=== PATIENT | male | born 1995 | race Two or more races ===

== ENCOUNTER 2018-03-06 11:30 | Emergency (ER) | payer OTHER ==
[2018-03-06 12:05] LABS: Urine Appearance Clear; Urine Blood Negative (Negative); Urine Color Straw; Urine Ketones Negative (Negative); Urine Protein Negative (Negative); Urine Specific Gravity 1.003 (1.010-1.030); Urine Urobilinogen Negative (Negative)
[2018-03-06 12:15] LABS: ABS Basophils 0.1 10^3/ul (0-0.2); ABS Eosinophils 0.1 10^3/ul (0-0.6); ABS Lymphocytes 1.5 10^3/ul (1.0-4.8); ABS Monocytes 0.3 10^3/ul (0-0.8); ABS Neutrophils 2.5 10^3/ul (1.5-7.7); ABS Nucleated RBC 0 10^3/ul; Eosinophil % 1.5 % (0-6); Hematocrit 47 % (42-52); Hemoglobin 16.1 g/dl (14.0-18.0); Lymphocyte % 34.2 % (25-47); Mean Corpuscular HGB Conc 34 g/dl (31-36); Mean Corpuscular Hemoglobin 30 pg (27-31); Mean Corpuscular Volume 88 fL (80-94); Mean Platelet Volume 7.3 um3 (7.4-10.4); Nucleated Red Blood Cells % 0; Platelet Count 280 10^3/ul (150-450); Red Blood Count 5.29 10^6/ul (4.0-5.4); Red Cell Distribution Width 14 % (10.5-15); White Blood Count 4.5 10^3/ul (3.5-10.8)
[2018-03-06 12:31] LABS: EGFR Non-African American 130.8 (>60)
[2018-03-06 22:02] VITALS: BP 140/82
--- NOTE | 2018-03-06 22:08 | ED ---
Fidencio Lowry Jennifer, scribed for Rodney Blue MD on 03/06/18 at 1156 . Psychiatric Complaint - HPI Summary HPI Summary: The patient is a 22 year old male who presents with depression that worsened after taking an unknown drug last night. The patient was found wandering around the wrong [employer] on campus and was brought 9.41 by police. When asked if he wanted to hurt himself, he said, Take me to my room and Ill think about it. The patient told police that if they told his parents he was at the ED, he would kill himself. The patient additionally explained that last night he was with a girl who was the cause of all his stress. The patient sees Dr. Babcock, a psychotherapist, once a week. He adds that he did not sleep at all last night. - History Of Current Complaint Time Seen by Provider: 03/06/18 11:35 Hx Obtained From: Patient Onset/Duration: Sudden Onset, Lasting Hours - began last night, Still Present Timing: Constant Severity Initially: Moderate Severity Currently: Moderate Character: Depressed Aggravating Factor(s): Nothing Alleviating Factor(s): Nothing Has Suicidal: Denies: With A Plan Has Homicidal: Denies: Thoughts, With A Plan - Allergies/Home Medications Home Medications: Home Medications Acetaminophen TAB* [Tylenol TAB*] 325 - 650 mg PO Q6H PRN 03/06/18 [History Confirmed 03/06/18] PMH/Surg Hx/FS Hx/Imm Hx Endocrine/Hematology History: Denies: Hx Diabetes Cardiovascular History: Denies: Hx Hypertension - Family History Known Family History: Negative: Hypertension - Social History Occupation: Student Hx Substance Use: Yes Smoking Status (MU): Never Smoked Tobacco Review of Systems Negative: Fever Positive: Depressed All Other Systems Reviewed And Are Negative: Yes Physical Exam - Summary Physical Exam Summary: Appearance: The patient is well-nourished in no acute distress and in no acute pain. Skin: The skin is warm and dry and skin color reflects adequate perfusion. HEENT: The head is normocephalic and atraumatic. The pupils are equal and reactive. The conjunctivae are clear and without drainage. Nares are patent and without drainage. Mouth reveals moist mucous membranes and the throat is without erythema and exudate. The external ears are intact. The ear canals are patent and without drainage. The tympanic membranes are intact. Neck: the neck is supple with full range of motion and non-tender. There are no carotid bruits. There is no neck vein distension. Respiratory: Chest is non-tender. Lungs are clear to auscultation and breath sounds are symmetrical and equal. Cardiovascular: Heart is regular rate and rhythm. There is no murmur or rub auscultated. There is no peripheral edema and pulses are symmetrical and equal. Abdomen: The abdomen is soft and non-tender. There are normal bowel sounds heard in all four quadrants and there is no organomegaly palpated. Musculoskeletal: There is no back tenderness noted. Extremities are non-tender with full range of motion. There is good capillary refill. There is no peripheral edema or calf tenderness elicited. Neurological: Patient is alert and oriented to person, place and time. The patient has symmetrical motor strength in all four extremities. Cranial nerves are grossly intact. Deep tendon reflexes are symmetrical and equal in all four extremities. Psychiatric: The patient has an appropriate affect and does not exhibit any anxiety or depression. Triage Information Reviewed: Yes Vital Signs On Initial Exam: Initial Vitals Temp Pulse Resp BP Pulse Ox 98.5 F 88 20 130/70 99 03/06/18 11:38 03/06/18 11:38 03/06/18 11:38 03/06/18 11:38 03/06/18 11:38 Vital Signs Reviewed: Yes Diagnostics - Vital Signs Vital Signs Temp Pulse Resp BP Pulse Ox 03/06/18 21:55 97.4 F 96 18 140/82 100 03/06/18 20:50 97.5 F 94 16 131/71 100 03/06/18 18:58 98.5 F 88 18 122/70 98 03/06/18 12:18 93 120/73 99 03/06/18 12:04 88 91 03/06/18 11:47 96 98 03/06/18 11:46 101 127/88 97 03/06/18 11:38 98.5 F 88 20 130/70 99 - Laboratory Lab Results: Lab Results 03/06/18 03/06/18 03/06/18 Range/Units 11:52 11:52 12:10 WBC (3.5-10.8) 10^3/ul RBC (4.0-5.4) 10^6/ul Hgb (14.0-18.0) g/dl Hct (42-52) % MCV (80-94) fL MCH (27-31) pg MCHC (31-36) g/dl RDW (10.5-15) % Plt Count (150-450) 10^3/ul MPV (7.4-10.4) um3 Neut % (Auto) (38-83) % Lymph % (Auto) (25-47) % [place] % (Auto) (0-7) % Eos % (Auto) (0-6) % Baso % (Auto) (0-2) % Absolute Neuts (auto) (1.5-7.7) 10^3/ul Absolute Lymphs (auto) (1.0-4.8) 10^3/ul Absolute Monos (auto) (0-0.8) 10^3/ul Absolute Eos (auto) (0-0.6) 10^3/ul Absolute Basos (auto) (0-0.2) 10^3/ul Absolute Nucleated RBC 10^3/ul Nucleated RBC % Sodium 145 (139-145) mmol/L Potassium 3.8 (3.5-5.0) mmol/L Chloride 110 (101-111) mmol/L Carbon Dioxide 27 (22-32) mmol/L Anion Gap 8 (2-11) mmol/L BUN 4 L (6-24) mg/dL Creatinine 0.76 (0.67-1.17) mg/dL Est GFR ( Amer) 168.2 (>60) Est GFR (Non-Af Amer) 130.8 (>60) BUN/Creatinine Ratio 5.3 L (8-20) Glucose 117 H (70-100) mg/dL Calcium 9.0 (8.6-10.3) mg/dL Total Bilirubin 0.40 (0.2-1.0) mg/dL AST 13 (13-39) U/L ALT 9 (7-52) U/L Alkaline Phosphatase 64 (34-104) U/L Total Protein 7.2 (6.4-8.9) g/dL Albumin 4.8 (3.2-5.2) g/dL Globulin 2.4 (2-4) g/dL Albumin/Globulin Ratio 2.0 (1-3) TSH 0.57 (0.34-5.60) mcIU/mL Urine Color Straw Urine Appearance Clear Urine pH 7.0 (5-9) Ur Specific [place] 1.003 L (1.010-1.030) Urine Protein Negative (Negative) Urine Ketones Negative (Negative) Urine Blood Negative (Negative) Urine Nitrate Negative (Negative) Urine Bilirubin Negative (Negative) Urine Urobilinogen Negative (Negative) Ur Leukocyte Esterase Negative (Negative) Urine Glucose Negative (Negative) Salicylates < 2.50 (<30) mg/dL Urine Opiates Screen None detected (None Detect) Acetaminophen < 15 mcg/mL Ur Barbiturates Screen None detected (None Detect) Ur Phencyclidine Scrn None detected (None Detect) Ur Amphetamines Screen None detected (None Detect) U Benzodiazepines Scrn None detected (None Detect) Urine Cocaine Screen None detected (None Detect) U Cannabinoids Screen None detected (None Detect) Serum Alcohol 296 H (<10) mg/dL 03/06/18 Range/Units 12:10 WBC 4.5 (3.5-10.8) 10^3/ul RBC 5.29 (4.0-5.4) 10^6/ul Hgb 16.1 (14.0-18.0) g/dl Hct 47 (42-52) % MCV 88 (80-94) fL MCH 30 (27-31) pg MCHC 34 (31-36) g/dl RDW 14 (10.5-15) % Plt Count 280 (150-450) 10^3/ul MPV 7.3 L (7.4-10.4) um3 Neut % (Auto) 55.5 (38-83) % Lymph % (Auto) 34.2 (25-47) % [place] % (Auto) 7.1 H (0-7) % Eos % (Auto) 1.5 (0-6) % Baso % (Auto) 1.7 (0-2) % Absolute Neuts (auto) 2.5 (1.5-7.7) 10^3/ul Absolute Lymphs (auto) 1.5 (1.0-4.8) 10^3/ul Absolute Monos (auto) 0.3 (0-0.8) 10^3/ul Absolute Eos (auto) 0.1 (0-0.6) 10^3/ul Absolute Basos (auto) 0.1 (0-0.2) 10^3/ul Absolute Nucleated RBC 0 10^3/ul Nucleated RBC % 0 Sodium (139-145) mmol/L Potassium (3.5-5.0) mmol/L Chloride (101-111) mmol/L Carbon Dioxide (22-32) mmol/L Anion Gap (2-11) mmol/L BUN (6-24) mg/dL Creatinine (0.67-1.17) mg/dL Est GFR ( Amer) (>60) Est GFR (Non-Af Amer) (>60) BUN/Creatinine Ratio (8-20) Glucose (70-100) mg/dL Calcium (8.6-10.3) mg/dL Total Bilirubin (0.2-1.0) mg/dL AST (13-39) U/L ALT (7-52) U/L Alkaline Phosphatase (34-104) U/L Total Protein (6.4-8.9) g/dL Albumin (3.2-5.2) g/dL Globulin (2-4) g/dL Albumin/Globulin Ratio (1-3) TSH (0.34-5.60) mcIU/mL Urine Color Urine Appearance Urine pH (5-9) Ur Specific [place] (1.010-1.030) Urine Protein (Negative) Urine Ketones (Negative) Urine Blood (Negative) Urine Nitrate (Negative) Urine Bilirubin (Negative) Urine Urobilinogen (Negative) Ur Leukocyte Esterase (Negative) Urine Glucose (Negative) Salicylates (<30) mg/dL Urine Opiates Screen (None Detect) Acetaminophen mcg/mL Ur Barbiturates Screen (None Detect) Ur Phencyclidine Scrn (None Detect) Ur Amphetamines Screen (None Detect) U Benzodiazepines Scrn (None Detect) Urine Cocaine Screen (None Detect) U Cannabinoids Screen (None Detect) Serum Alcohol (<10) mg/dL Result Diagrams: 03/06/18 12:10 03/06/18 12:10 Lab Statement: Any lab studies that have been ordered have been reviewed, and results considered in the medical decision making process. Course/Dx - Course Course Of Treatment: Nr. Virgie Acharya presented quite intoxicated but very cooperative. He was medically cleared and had an MHE in the Flex Unit. They felt that he was stable for discharge. - Differential Dx/Clinical Impression Provider Diagnosis: Alcohol intoxication Discharge - Sign-Out/Discharge Documenting (check all that apply): Discharge - Discharge Plan Condition: Stable Disposition: HOME Patient Education Materials: Alcohol Intoxication (ED) Referrals: [facility] - Moi SHANKAR [Primary Care Provider] - Additional Instructions: Follow up with your primary care physician in three days. Return to the emergency department for any new or worsening symptoms. Per completion of a mental health evaluation, you are cleared for release and do not require inpatient psychiatric hospitalization at this time. Please go to nearest emergency room or call 911 if safety concerns arise or condition worsens. Important Phone Numbers: [facility]~~ ph:[phone] Suicide Prevention and Crisis Services~~~~~~~~~~~~~~~~~~~~~~~ ph:[phone] National Suicide Prevention Lifeline~~~~~~~~~~~~~~~~~~~~~~~ ~~ ph:684-224- [facility] (4013) [facility]~~~~~~~~~~~~~~~~~~ ~~ ph:[phone] Alcoholics Anonymous~~~~~~~~~~~~~~~~~~~~~~~~~~~~~~~~~~~~~~~~~~~~~~~~~ ph:[phone] [facility]~~~~~~ ~~ ph:[phone] [place] [employer] ph:[phone] Discharged home to [place] Follow up with Therapist as scheduled () Take medications as prescribed Return to ED, if needed - Billing Disposition and Condition Condition: STABLE Disposition: HOME The documentation as recorded by the Fidencio bland Jennifer accurately reflects the service I personally performed and the decisions made by Mirza najera Richard L, MD.
== END 2018-03-06 23:01 | disposition home or self-care (01) ==
LOC: ED 11:30
DX: F10.129 Alcohol abuse with intoxication, unspecified (principal)
CPT/HCPCS: 36415; 80053; 80307; 80320; 80329; 81003; 84443; 85025; 99285; G0480

== ENCOUNTER 2018-12-21 09:41 | Inpatient (IN) | payer OTHER ==
--- NOTE | 2018-12-21 10:03 | ED ---
Psychiatric Complaint - HPI Summary HPI Summary: A 23 y/o male brought in by ambulance and police (9.41) presents to the ED s/p suicidal attempt c/o depression and SI. In the ED room, the patient has a pulse of 119 BPM, O2 saturation of 96%, respiratory rate of 18, and blood pressure of 141/90. As per EMS, the patient has been feeling depressed over the past couple days and he attempted suicide today by putting his head in the oven with the gas turned on, however, he did not get burned. Patient has an addiction with ETOH and takes drugs such as Robitussin and Vicodin. EMS noted that the patient attempted suicide in the past. Additionally the family is very voodoo and they do not believe in psychiatric issues/medicine. The patient asked in the ED room and asked again to the [employer] OPERATOR, "Do you have any recommendations on how to kill myself next time". According to the patient, the has been battling depression for the past 3 years. He stated that he tried to stop drinking for a while, but he stated that when he starts, he really drinks. Yesterday, he consumed lots of ETOH which is when the SI started. He stated that he only has SI when he drinks. He stated that he takes Robitussin, smokes Juul and marijuana. He took a half bottle of Robitussin yesterday and the other half this morning. He smoked marijuana yesterday and had a bourbon whiskey this morning. He noted that this is his second time at [facility] ED for SI. PMHx of depression. He takes his Zoloft medication every day. Patient will be signed out to Dr. John Mccollum via Dr. Bert Lemos, pending sobriety and MHE, upon shift change on Friday, December 21, 2018 at 1900. - History Of Current Complaint Time Seen by Provider: 12/21/18 09:45 Hx Obtained From: Patient, EMS - PATIENT BROUGHT IN BY AMBULANCE Onset/Duration: Sudden Onset, Lasting Days, Still Present Timing: Constant Severity Currently: None Character: Depressed Aggravating Factor(s): Alcohol Use - HEAVY ETOH DRINKING Alleviating Factor(s): Nothing Associated Signs And Symptoms: Positive: Negative Related History: Positive For: Prior Psychiatric Issues Has Suicidal: Reports: Thoughts, With A Plan, Demonstrates Gesture, Has Prior Attempt(s) - Allergies/Home Medications Allergies/Adverse Reactions: Allergies Allergy/AdvReac Type Severity Reaction Status Date / Time No Known Allergies Allergy Verified 12/21/18 09:59 Home Medications: Home Medications Sertraline* [Zoloft*] 50 mg pe PO DAILY 12/21/18 [History Confirmed 12/21/18] PMH/Surg Hx/FS Hx/Imm Hx Endocrine/Hematology History: Denies: Hx Diabetes Cardiovascular History: Denies: Hx Hypertension Psychiatric History: Denies: Hx Eating Disorder, Hx of Violent Episodes Against Others - Surgical History Surgery Procedure, Year, and Place: TONSILLECTOMY - Family History Known Family History: Negative: Hypertension - Social History Alcohol Use: Weekly Hx Substance Use: Yes Substance Use Type: Reports: None Smoking Status (MU): Never Smoked Tobacco Review of Systems Negative: Fever Psychological: Other - POSITIVE: SI with attempt. Positive: Depressed All Other Systems Reviewed And Are Negative: Yes Physical Exam - Summary Physical Exam Summary: VITAL SIGNS: Reviewed. GENERAL: Patient is a well-developed and nourished male who is lying comfortable in the stretcher. Patient is not in any acute respiratory distress. Patient is intoxicated with ETOH in his breath. HEAD AND FACE: No signs of trauma. No ecchymosis, hematomas or skull depressions. No sinus tenderness. EYES: PERRLA, EOMI x 2, No injected conjunctiva, no nystagmus. EARS: Hearing grossly intact. Ear canals and tympanic membranes are within normal limits. MOUTH: Oropharynx within normal limits. NECK: Supple, trachea is midline, no adenopathy, no JVD, no carotid bruit, no c- spine tenderness, neck with full ROM. CHEST: Symmetric, no tenderness at palpation LUNGS: Clear to auscultation bilaterally. No wheezing or crackles. CVS: Regular rate and rhythm, S1 and S2 present, no murmurs or gallops appreciated. ABDOMEN: Soft, non-tender. No signs of distention. No rebound no guarding, and no masses palpated. Bowel sounds are normal. EXTREMITIES: FROM in all major joints, no edema, no cyanosis or clubbing. NEURO: Alert and oriented x 3. No acute neurological deficits. Speech is normal and follows commands. SKIN: Dry and warm PSYCH: SI, depressed Triage Information Reviewed: Yes Vital Signs Reviewed: Yes Diagnostics - Laboratory Result Diagrams: 12/21/18 10:06 12/21/18 10:06 Lab Statement: Any lab studies that have been ordered have been reviewed, and results considered in the medical decision making process. - EKG 0956 Cardiac Rate: Tachycardia - 112 BPM EKG Rhythm: Sinus Tachycardia - 112 BPM Summary of EKG Findings: EARLY REPOLARIZATION. Course/Dx - Course Assessment/Plan: A 23 y/o male brought in by ambulance and police (9.41) presents to the ED s/p suicidal attempt c/o depression and SI. In the ED room, the patient has a pulse of 119 BPM, O2 saturation of 96%, respiratory rate of 18 , and blood pressure of 141/90. As per EMS, the patient has been feeling depressed over the past couple days and he attempted suicide today by putting his head in the oven with the gas turned on, however, he did not get burned. Patient has an addiction with ETOH and takes drugs such as Robitussin and Vicodin. EMS noted that the patient attempted suicide in the past. Additionally the family is very voodoo and they do not believe in psychiatric issues/ medicine. The patient asked in the ED room and asked again to the [employer] ST[employer] OPERATOR, "Do you have any recommendations on how to kill myself next time". According to the patient, the has been battling depression for the past 3 years. He stated that he tried to stop drinking for a while, but he stated that when he starts, he really drinks. Yesterday, he consumed lots of ETOH which is when the SI started. He stated that he only has SI when he drinks. He stated that he takes Robitussin, smokes Juul and marijuana. He took a half bottle of Robitussin yesterday and the other half this morning. He smoked marijuana yesterday and had a bourbon whiskey this morning. He noted that this is his second time at [facility] ED for SI. PMHx of depression. He takes his Zoloft medication every day. Blood work without any significant abnormality. 2 troponins 4 hours apart as 0.00. The d-dimer is less than 200 therefore I have no suspicion for acute, syndrome or a PE. Also the was pretty is equal to 0. Blood work without any significant abnormality except for glucose of 106, TSH of 0.33, urinalysis is negative for UTI, urine toxicology is negative, and serum alcohol level is 359. At this point the patient still intoxicated. The patient was given IV fluids. We discussed the case with poison control and they recommend 6 hours observation. EKG shows a sinus tachycardia without any ST elevations. At this time the patient is hemodynamically stable alert and oriented 3. Patient will be signed out to Dr. Mccollum at shift change. - Differential Dx/Clinical Impression Differential Diagnosis/HQI/PQRI: Positive: Alcohol Intoxication, Anxiety, Depression, Suicide Attempt, Suicidal Ideation, Suicidal Gesture Provider Diagnosis: Depressive disorder Discharge - Sign-Out/Discharge Documenting (check all that apply): Sign-Out Patient - CARLI Signing out patient TO: John Mccollum Receiving patient FROM: Bert Lemos Patient Received Moderate/Deep Sedation with Procedure: No - Discharge Plan Condition: Stable Disposition: PSYCHIATRIC FACILITY-[facility] - Billing Disposition and Condition Condition: STABLE - Attestation Statements Document Initiated by Yoshie: Yes Documenting Scribe: Gerald Cerda Provider For Whom Charlie is Documenting (Include Credential): Bert Lemos MD Scribe Attestation: Gerald Lowry scribed for Bert Lemos MD on 12/22/18 at 2152. Scribe Documentation Reviewed: Yes Provider Attestation: The documentation as recorded by the Gerald bland accurately reflects the service I personally performed and the decisions made by Bert najera MD Status of Scribe Document: Viewed
[2018-12-21 10:15] LABS: ABS Basophils 0 10^3/ul (0-0.2); ABS Eosinophils 0.1 10^3/ul (0-0.6); ABS Lymphocytes 1.8 10^3/ul (1.0-4.8); ABS Monocytes 0.5 10^3/ul (0-0.8); ABS Neutrophils 2.7 10^3/ul (1.5-7.7); ABS Nucleated RBC 0 10^3/ul; Eosinophil % 1.9 %; Hematocrit 41 % (42-52); Hemoglobin 14.1 g/dl (14.0-18.0); Lymphocyte % 34.6 %; Mean Corpuscular HGB Conc 34 g/dl (31-36); Mean Corpuscular Hemoglobin 31 pg (27-31); Mean Corpuscular Volume 90 fL (80-94); Mean Platelet Volume 6.4 fL (7.4-10.4); Nucleated Red Blood Cells % 0; Platelet Count 217 10^3/ul (150-450); Red Blood Count 4.57 10^6/ul (4.00-5.40); Red Cell Distribution Width 14 % (10.5-15); White Blood Count 5.2 10^3/ul (3.5-10.8)
[2018-12-21 10:26] LABS: Urine Appearance Clear; Urine Bacteria Absent (Absent); Urine Bilirubin Negative (Negative); Urine Blood 1+ (Negative); Urine Color Yellow; Urine Glucose Negative (Negative); Urine Ketones Negative (Negative); Urine Nitrite Negative (Negative); Urine Protein Negative (Negative); Urine Red Blood Cell Trace(0-2/hpf) (Absent); Urine Urobilinogen Negative (Negative); Urine White Blood Cell Absent (Absent)
[2018-12-21 10:34] LABS: ALT 9 U/L (7-52); AST 20 U/L (13-39); Albumin 4.5 g/dL (3.2-5.2); Albumin/Globulin Ratio 1.9 (1-3); Alkaline Phosphatase 84 U/L (34-104); Anion Gap 9 mmol/L (2-11); BUN/Creatinine Ratio 11.8 (8-20); Blood Urea Nitrogen 9 mg/dL (6-24); CO2 Carbon Dioxide 27 mmol/L (22-32); Calcium 8.9 mg/dL (8.6-10.3); Chloride 107 mmol/L (101-111); EGFR African American 156.7 (>60); EGFR Non-African American 129.5 (>60); Globulin 2.4 g/dL (2-4); Glucose 106 mg/dL (70-100); Potassium 3.6 mmol/L (3.5-5.0); Sodium 143 mmol/L (135-145); Total Protein 6.9 g/dL (6.4-8.9)
[2018-12-21 10:46] LABS: Barbiturates Urine Screen None Detected (None Detect); Benzodiazepine Urine Screen None Detected (None Detect); Urine Cannabinoids Screen None Detected (None Detect)
[2018-12-21] MEDS ORDERED: NS 0.9% 1000 ML** 1,000 ML IV ONE ×2 (11:00→14:37)
[2018-12-21 11:04] LABS: Acetaminophen < 15 mcg/mL; Alcohol 359 mg/dL (<10); Salicylate < 2.50 mg/dL (<30)
[2018-12-21 11:11] LABS: TSH (Thyroid Stimulating Horm) 0.33 mcIU/mL (0.34-5.60)
[2018-12-21] MEDS ORDERED: LORazepam INJ* 2 MG/ML 1 ML VIAL IV PUSH ONE (14:37)
[2018-12-21] MEDS ORDERED: LORazepam INJ* 2 MG/ML 1 ML VIAL ONE (14:40)
--- NOTE | 2018-12-21 19:19 | ED ---
Progress - Progress Note Progress Note: This pt was signed out by Dr. Lemos at shift change, pending disposition, awaiting sobriety and MHE. Pt had a mental health evaluation and his case was reviewed by Dr. Zuniga, psychiatrist. Pt will be admitted to [facility] by Dr. Zuniga on an involuntary status with dx depressive disorder. Course/Dx - Diagnoses Provider Diagnoses: Depressive disorder Discharge - Sign-Out/Discharge Documenting (check all that apply): Patient Departure - Admit to [facility], Receiving Sign-Out Receiving patient FROM: Bert Lemos Patient Received Moderate/Deep Sedation with Procedure: No - Discharge Plan Condition: Stable Disposition: [facility]IATRIC FACILITY[facility] Referrals: [facility] [Outside] - Attestation Statements Document Initiated by Scribe: Yes Documenting Scribe: Marjan Mayo Provider For Whom Scribe is Documenting (Include Credential): John Mccollum MD Scribe Attestation: Marjan Lowry, scribed for John Mccollum MD on 12/21/18 at 4264. Status of Scribe Document: Ready
[2018-12-22] MEDS ORDERED: Al Hydrox/Mg Hydrox/Simet LIQ* 30 ML UDC PO PRN (01:02)
[2018-12-22] MEDS ORDERED: Acetaminophen TAB* 325 MG PO PRN (01:02)
[2018-12-22] MEDS ORDERED: LORazepam PO 0-6 for WAM protocol PO SCH (05:00)
[2018-12-22] MEDS ORDERED: LORazepam IM 0-6 mg for WAM protocol IM SCH (05:00)
[2018-12-22] MEDS ORDERED: Thiamine IV* 100 MG IM X 1 ON ADMISSION IM ONE (05:00)
[2018-12-22 08:46] LABS: HDL Cholesterol 74.7 mg/dL
[2018-12-22] MEDS: Folic Acid TAB* 1 MG DAILY PO SCH (10:07)
[2018-12-22] MEDS: Vitamin THERAPEUTIC TAB PO SCH (10:07)
[2018-12-22] MEDS: Multivitamins ADULT TAB DAILY PO SCH (10:08)
--- NOTE | 2018-12-22 14:30 | HP ---
HISTORY AND PHYSICAL: DATE OF ADMISSION: 12/21/18 PROVIDER: Faby Schaffer NP, in Psychiatry SUPERVISING PHYSICIAN: Jack Borjas MD.* (DICTATED BY FABY SCHAFFER NP) JUSTIFICATION FOR ADMISSION: The patient is in need of 24-hour supervision and care secondary to suicidal ideation and attempt. CHIEF COMPLAINT: "I get very lonely sometimes...I think my friend saved my life tonight by calling [place] [employer]." HISTORY OF PRESENT ILLNESS: The patient is a 23-year-old single male with a history of major depressive disorder, who arrives, brought in by ambulance and is here on a 9.39 status following putting his head in an unlit oven and inhaling gas fumes in an attempt to end his life. He did call his friend after that who called [facility] Police Department, who came and picked him up and sent him to the hospital. Zac is a 23-year-old man who is a biology major in neuroscience, who formerly was a member of fraternity (but is no longer there because he believes they were bad influences), complained significantly of loneliness and unhappiness, and also of drinking too excess on some occasions. He describes his college career at [employer] to be problematic related to depression, which started in high school, and loneliness and anxiety. He identifies himself as an anxious person. He states when he was a sophomore, he began seeking help for depression and loneliness. After his sophomore year, he was drinking alcohol. He states the drinking was under control; it was approximately 3 beers per week. Once he turned 23, however, he was able to purchase alcohol legally. He was working at the [employer]. He was receiving tips and he could purchase 2 to 3 beers 2 to 3 times per week and then he brought a "handle" of vodka and could not stop drinking mixed drinks. He states he has a GPA of 3.2 and that he has been invited to apply to the [employer] masters' program. The event that led him here is that he would arrange for a [place] libertarian, he began drinking on Friday or Friday and continued drinking through Friday into Friday. He states that he had not taken Zoloft in 4 days. He has also been experimenting with cough syrups. In his barbara year, he started drinking cough syrup due to having trouble sleeping and then discovered that he gets a "weird head high." He also has experimented with codeine cough syrup and alcohol. This Friday, he took more Robitussin because he had a cold and he also took more alcohol. He states on Friday, he was so disgusted with himself that he put his head in the oven and then called his friend, Anny, who called the police. He is feeling extremely guilty. His energy is low. He would like to be working on his work for school but cannot do that because he does not have things he needs. He seems well and happy at this point, but he is also minimizing the potentially disastrous effects this could have had on his life and for his family. PAST PSYCHIATRIC HISTORY: He has never been admitted to our hospital before. He has been evaluated here at the hospital on 03/06/18 where he came in intoxicated with a blood alcohol level around 300. He has been seeing Dr. Cristobal Babcock as a therapist who does what is referred as a [facility]. He has not met with Dr. Babcock this semester yet. Last semester, he went to [employer] where he complained of anxiety and depression. Zoloft was increased to 100 mg per day. He has had suicidal ideation as early as his sophomore year in college where he was considering drowning himself in [place]. His Zoloft was increased from 50 mg to 100 mg in September. He states that the increase in Zoloft improved his baseline so that he felt better. He was less tired. His family noticed the positive change. PAST MEDICAL HISTORY: He does not have any allergies that he knows of. He had a tonsillectomy at age 18 which in someway went awry as he was found at home in a pool of blood following the surgery. HISTORY OF SUBSTANCE USE: He uses alcohol heavily and periodically in a binge- type fashion and he uses Robitussin and codeine-based cough syrups. FAMILY HISTORY: He believes that some of his uncles are alcoholics. Dad used to drink but did not have a lot of money so they did not spend it on that. Mom may have "bipolar disorder or menopause," he is not sure. In any case, the family does not "believe" in mental illness and would find it bizarre for Zac to have a mental illness. They would not understand. SOCIAL HISTORY: He is a student at [employer]. His father is living in [place] where he works for a hospital. Zac is doing reasonably well in school. He is happily satisfied that as biology major having average of 3.2 is excellent. He is not or partnered. He does not have children. He has been employed at the [employer]. He was in [employer], but is no longer in that. There are no legal problems. REVIEW OF SYSTEMS: The patient reports feeling fatigued. He denies shortness of breath, heat or cold intolerance, chest pain. He does have nausea. He denies neurological symptoms. He denies fevers or changes in weight. PHYSICAL EXAMINATION VITAL SIGNS: On 12/22/18 at 0843, temperature 98.6, pulse 73, respirations 16, O2 sat on room air 100, blood pressure 138/86. For further exam data, please see emergency department records. LABORATORY DATA: Most lab data are within normal limits. Exceptions are hematocrit low at 41, MPV low at 6.4, glucose high at 106, TSH low at 0.33. Incidentally, his hemoglobin A1c is 4.8. Triglycerides are 93, cholesterol 176 , LDL cholesterol 83, HDL cholesterol 74.7. Urine blood is present and his serum alcohol is 359. MENTAL STATUS EXAMINATION: This is a short, well-built 23-year-old man appearing his stated age. He has brown skin and dark hair. He is appropriate in speech and sits quietly while we talk. He is calm and cooperative. His speech rate is normal in rate, tone, and volume. He appears to be euthymic. He has a constricted affect. His thought processes are sequential and logical. His thought content is free of delusions. He states he is no longer suicidal and is not homicidal. He states he does not have auditory or visual hallucinations, but interestingly does claim to be psychotic. This is in the context of while being extremely intoxicated having uncharacteristic thoughts such as wanting to kill himself. His insight is fair. His judgement is good. He is alert and oriented x3. DIAGNOSES: [place] I: Major depressive disorder and substance induced mood disorder. [place] II: Deferred. 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 This is not his first time with suicidal ideation but it is his first attempt. PLAN: The patient is admitted to the adult behavioral health unit and placed on a q.15 minute checks for his own safety. He is encouraged to participate in supportive milieu, individual and group therapy. Estimated length of stay is 3 to 7 days. We will titrate medications to efficacy and monitoring for mood and thought content. I will increase Zoloft to 200 mg from 100 mg. I may obtain an MMPI to elucidate what he meant by having psychotic thoughts and discharge planning will include family involvement and outpatient providers. FABY SCHAFFER, MELIA [id number]/CPS #: [id number] MTDDelmi
[2018-12-22] MEDS ORDERED: Ondansetron ODT TAB* 4 MG PO PRN (15:32)
[2018-12-22] MEDS: Sertraline* 100 MG TAB PO SCH (21:17)
[2018-12-23] MEDS: Vitamin THERAPEUTIC TAB PO SCH (09:06)
[2018-12-23] MEDS: Multivitamins ADULT TAB DAILY PO SCH (09:06)
[2018-12-23] MEDS: Sertraline* 100 MG TAB PO SCH ×2 (09:07→20:22)
[2018-12-23] MEDS: Thiamine TAB* 100 MG TAB DAILY (@ T+1) PO SCH (09:07)
[2018-12-23] MEDS: Folic Acid TAB* 1 MG DAILY PO SCH (09:07)
--- NOTE | 2018-12-23 14:38 | PN ---
Subjective - Subjective Date of Service: 12/23/18 Service Type: 21121 Hosp care 35 min high complexity Subjective: Patient and father met with Jovana Price LMSW and hand sign writer for treatment planning. See SW note. Patient presents with improved insight into alcohol use and risk for worsening depressive symptoms. He and his father were noted to have positive interactions. Patient agrees to speak with [place] e commerce marketing manager to assist in communication with his professors. Objective - Appearance Appearance: Well Developed/Nourished Dysmorphic Features: Yes Hygiene: Normal Grooming: Well Kept - Behavior Psychomotor Activities: Normal Exhibits Abnormal Movement: No - Attitude and Relatedness Attitude and Relatedness: Cooperative Eye Contact: Fair - Speech Quality: Unpressured Latencies: Normal Quantity: Appropriate - Mood Patient's Decription of Mood: "Anxious" - Affect Observed Affect: Good Affect Consistent with: Euthymia - Thought Process Patient's Thought Process: Coherent, Goal Directed Thought Content: No Passive Wish, No Suicidal Planning, No Homicidal Ideation, No Paranoid Ideation - Sensorium Experiencing Hallucinations: No, Sensorium is Clear Type of Hallucinations: Visual: No, Auditory: No, Command: No - Level of Consciousness Level of Consciousness: Alert Orientation: Yes Intact, Yes Orientated to Time, Yes Orientated to Place, Yes Orientated to Person - Impulse Control Impulse Control: Intact - in this setting - Insight and Judgement Insight and Judgement: Good - Group Participation Particating in Group Activities: Yes - Medication Management Medication Management Adherence: Yes Assessment - Assessment Merits Inpatient Hospitalization: For Immediate Safety, For Stabilization Inpatient DSM-V Dx: F33.1 Clinical Impression: 23yo male, student at [employer] who presented to ED after an aborted suicide attempt and severe alcohol intoxication. He merits hospitalization for immediate safety and stabilization. Plan - Plan Treatment Plan: Name: GAURAV ALVARES Birthdate: 1995 [id number] continue acute intensive psychiatric treatment. may decrease to q30min obs and allow staff pass/computer use per RN discretion. DC WAM, continue current medications. discharge planning to include family and [facility]. Continued Medication Management: Continue Outpt Medication Medications: Current Medications Acetaminophen (Tylenol Tab*) 650 mg PO Q4H PRN PRN Reason: PAIN or TEMP > 101 F Al Hydrox/Mg Hydrox/Simethicone (Maalox Plus*) 30 ml PO Q4H PRN PRN Reason: INDIGESTION Folic Acid (Folvite Tab*) 1 mg PO DAILY [facility] Last Admin: 12/23/18 09:07 Dose: 1 mg Lorazepam (Ativan Tab(*)) 0 - 6 mg PO .PER [facility] PARAMETERS KAYLEEN; Protocol Last Admin: 12/22/18 11:22 Dose: 2 mg Lorazepam (Ativan Inj*) 0 - 6 mg IM .PER [facility] PROTOCOL [facility]; Protocol Multivitamins (Theragran Tab*) 1 tab PO DAILY [facility] Last Admin: 12/23/18 09:06 Dose: Not Given Multivitamins/Minerals (Theragran/Minerals Tab*) 1 tab PO DAILY [facility] Last Admin: 12/23/18 09:06 Dose: 1 tab Ondansetron HCl (Zofran Odt Tab*) 8 mg PO Q6H PRN PRN Reason: NAUSEA Last Admin: 12/22/18 15:40 Dose: 8 mg Sertraline HCl (Zoloft*) 100 mg PO BID [facility] Last Admin: 12/23/18 09:07 Dose: 100 mg Thiamine HCl (Vitamin B-1 Tab*) 100 mg PO DAILY [facility] Last Admin: 12/23/18 09:07 Dose: 100 mg - Discharge Plan Discharge Plan: Outpatient Follow Up Outpatient Program: Counseling/Psych Services at [facility]
--- NOTE | 2018-12-23 15:57 | PN ---
MHU: Group Therapy Note - Service Type Service Type: [id number] Group Psychotherapy - Medication Education Group: Patient attended group and presented with flat affect that did not vary with discussion. Although responsive to direct prompts to respond to questions, patient did not engage in spontaneous conversation.
[2018-12-24] MEDS: Thiamine TAB* 100 MG TAB DAILY (@ T+1) PO SCH (08:28)
[2018-12-24] MEDS: Sertraline* 100 MG TAB PO SCH (08:28)
[2018-12-24] MEDS: Folic Acid TAB* 1 MG DAILY PO SCH (08:28)
[2018-12-24] MEDS: Multivitamins ADULT TAB DAILY PO SCH (08:28)
[2018-12-24] MEDS: Vitamin THERAPEUTIC TAB PO SCH (08:30)
[2018-12-24 08:59] VITALS: BP 126/89
--- NOTE | 2018-12-24 20:31 | DS ---
CC: [facility] * DISCHARGE SUMMARY: DATE OF ADMISSION: 12/21/18. DATE OF DISCHARGE: 12/24/18. PROVIDER: Faby Schaffer NP, in Psychiatry. SUPERVISING PHYSICIAN: Dr. Jack Borjas.* (DICTATED BY FABY SCHAFFER NP ) DIAGNOSES: [place] I: Major depressive disorder. [place] II: Deferred. CONDITION AT THE TIME OF DISCHARGE: Improved, psychiatrically cleared, stable. Zac participated in groups, somewhat social with his peers. His father came to see him and he is agreeable to his discharge. Zac did well here psychiatrically and tolerated an increase in medications. He is going to be attending [place] [facility]. MENTAL STATUS EXAMINATION: At the time of discharge, Zac is calm, cooperative , and makes good eye contact. He is alert and oriented x3. His grooming is excellent. His speech pace is normal. His thought processes are logical. He is not psychotic or delusional. He denies AH, VH, SI, and HI. His insight and judgment are fair to good. He is willing to follow up and he is urged to see a [place] therapist. DISCHARGE INSTRUCTIONS TO THE PATIENT: A. Medications: Zoloft 200 mg daily. B. Diet is regular. C. Activities as tolerated. Zac is a nonsmoker and there are no studies pending at the time of discharge. D. Followup appointments: He has appointments at [facility] on 12/24/18 at 5 o'clock with WOLF Sanchez on level 5. E. Substance abuse followup: He was referred to substance abuse treatment, but declined to go, stating he feels as though he has it under control on his own. No medication was accepted in reference to substance abuse. HOSPITAL COURSE: Part A: Chief complaint: "I get very lonely sometimes....I think my friends saved my life tonight by calling [place] police." The patient is a 23-year-old single male with a history of major depressive disorder who arrives brought in by ambulance and is here on a 9.39 status following putting his head in an oven that was unlit and inhaling gas fumes in an attempt to end his life. He did call his friend after that who called [facility] Police Department, who came and picked him up and sent him to the hospital. 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 He describes his college career at [employer] to be problematic related to depression which started in high school and loneliness and anxiety. He identifies himself as an anxious person. He states when he was a sophomore, he began seeking help for depression and loneliness. After his sophomore year, he began drinking alcohol. He states the drinking was under control, it was approximately 3 beers per week. Once he turned 23; however, he was able to purchase alcohol legally and was working at the [employer]. He was receiving tips and he could purchase 2 to 3 beers 2 to 3 times a week and then he brought a handle of vodka and could not stop drinking mixed drinks. He states he has a GPA of 3.2 and that he has been invited to apply to the [employer] masters' program. The event that led him here is that he would arrange for a [employer] constitution party, he began drinking on Friday or Friday and continued drinking through Friday into Friday. He states that he had not taken Zoloft in 4 days. He also has been experimenting with cough syrup. In his barbara year, he started drinking cough syrup due to having trouble sleeping and then discovered that he gets a "weird head high." He also has experimented with codeine cough syrups and alcohol. This Friday, he took more Robitussin because he had a cold and he also took more alcohol. He states on Friday, he was so disgusted with himself that he put his head in the oven and then called his friend, Anny, who called the police. He is feeling extremely guilty. His energy is low. He would like to be working on his work for school but cannot, because he does not have everything he needs. He seems well and happy at this point, but he is also minimizing the possibly disastrous effects this could have had on his life and for his family. Part B: Psychiatric treatment was rendered. Zac was admitted to the adult behavioral unit and placed on 15-minute checks for safety. He did well on the unit and went to groups. He interacted with peers well. He tolerated the increase of Zoloft well. It was increased from 100 to 200. These meds were continued from home. We discussed his relationship with his therapist, Dr. Josh Babcock and encouraged him to instead seek treatment at [place] [facility] where he could have all of his treatment in one place and the treatment might be more traditional and focused on his needs. There was a family meeting with his father, Danny and Jovana Price and Joann Helena as well as Zac, which went well. Danny is agreeable to Zac's discharge. Zac's mother will also be staying here in [place] for 10 days following discharge to support and help Zac. There were no consults entered. Zac is much improved and has done well throughout his stay here. He is no longer having suicidal ideation. He is not depressed and in fact his affect is quite bright and he is looking forward eagerly to the future. He is not taking an academic leave. FABY SCHAFFER, MELIA [id number]/CPS #: [id number] HEMALATHA
--- NOTE | 2018-12-25 14:02 | CONS ---
PSYCHOLOGICAL REPORT: DATE OF CONSULT: 12/24/18 DATE OF DICTATION: 12/25/18 CODE: [id number] REASON FOR REFERRAL: John was referred for personality testing in order to assess severity of depressive symptomatology and assess for any affective disturbance consistent with bipolar disorder. TEST ADMINISTERED: John completed the [place] Multiphasic Personality Inventory-2 (MMPI-2), and was given feedback in individual conversation. 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 He was hospitalized after he had called a friend asking for help after he had put his head in an oven and inhaled the gas fumes in an attempt to commit suicide. However, he self-preserved and contacted the friend who picked him up and brought him to the hospital for evaluation. John describes good academic adjustment at [employer], where he has a 3.2 GPA and has been invited to matriculate in Masters degree program at [employer]. He described struggling socially, endorsing a feeling of lonely and unhappy, describing how at times it is difficult for him to be away from his family who are in [facility] and describing difficult adjustment in establishing and maintaining nurturing friendships while here, including in a romantic context. He describes loneliness as encroaching difficulty for him of late. He also describes himself as a fairly anxious person and has been engaged in what sounds to be increasing amounts of drinking, which recently has included using cough syrup as a means to get high. He also describes drinking vodka excessively at times. He currently works at the [employer] and endorses having supportive family and indeed his father flew out from [place] to be with him after discharge. John describes prosocial goals and orientation, describing ambivalence about the prospects of entering the Masters' program at [employer]. 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 John also discusses possibly applying to various other universities both including several [employer] choices with other discussion addressing possibility of also applying to schools on the [facility] where he could be closer to family. TEST RESULTS: John only has a very mild elevation on the Fp scale (T=67), which is mildly reflective of endorsement of cynical and pessimistic thoughts and feelings. Discussion addressing this topic resonate well with John, who caught himself making negative assumptions about how things should possibly workout for him in the context of the feedback discussion. Reassuringly, he does not elevate any of the clinical scales with his depression scale being slightly subclinical (T=60), and his anxiety index being substantially subclinical (T=50). He also has a very low score on the social introversion scale, which describes a person who prefers to be around groups of people, but who may struggle to maintain emotionally nurturing an intimate relationships. IMPRESSIONS AND RECOMMENDATIONS: Feedback resonate with John both in terms of negativistic thinking as well as preference to be around people and difficulty in establishing and maintaining emotional intimacy. He reliably denied ongoing suicidal thoughts at time of discharge, and he was spontaneously able to discuss prosocial goals in both immediate and distal futures. Diagnostic impression supports major depressive episode, severe without psychosis. His acute symptoms impressed as resolving with unit structure and routine and discussion seen on ongoing treatment. He has agreed to attend outpatient therapy on campus at [facility] as there are concerns regarding the previous provider. John impresses as a good candidate to benefit from insight oriented psychotherapies. [id number]/[facility] #: [id number] HEMALATHA
== END 2018-12-24 12:15 | disposition home or self-care (01) | DRG 881 ==
LOC: ED 09:41 → BSU 23:52
PROVIDERS: ADMIT Psychiatry & Neurology Psychiatry; ATTEND Psychiatry & Neurology Psychiatry
PROC: GZHZZZZ Group Psychotherapy (ICD-10-PCS; principal; 2018-12-21)
DX: F32.9 Major depressive disorder, single episode, unspecified (principal); F41.9 Anxiety disorder, unspecified; F19.94 Other psychoactive substance use, unspecified with psychoactive substance-induced mood disorder; T59.892A Toxic effect of other specified gases, fumes and vapors, intentional self-harm, initial encounter; F10.129 Alcohol abuse with intoxication, unspecified; Y90.8 Blood alcohol level of 240 mg/100 ml or more; Z81.1 Family history of alcohol abuse and dependence; Y92.039 Unspecified place in apartment as the place of occurrence of the external cause; Z81.8 Family history of other mental and behavioral disorders
CPT/HCPCS: 36415; 80053; 80061; 80307; 80320; 80329; 81003; 81015; 83036; 84443; 85025; 86703; 90853; 93005; 96130; 99222; 99233; 99238; 99284; A9270-GY; G0480; J2060; J3411